=== PATIENT | male | born 1975 | race Caucasian/White ===

== ENCOUNTER → 2016-09-18 | Outpatient (CLI) | payer SELFPAY ==
[2016-09-18 16:49] LABS: Basophils % (A) 0 %; CH 32.7; CHCM 34.7; Eosinophils # (A) 0.7 k/uL (0-0.7); Eosinophils % (A) 6 %; HCT 48.7 % (39.0-53.0); HDW 2.96; HGB 16.4 gm/dL (13.0-17.5); Luc # (Auto) 0.17; Luc % (Auto) 2; Lymphocytes # (A) 1.9 k/uL (1.0-4.8); Lymphocytes % (A) 16 %; MCHC 33.8 g/dL (31.0-37.0); MCV 94.6 fL (80.0-100.0); Mean Platelet Volume 6.8; Monocytes # (A) 0.4 k/uL (0-1.0); Monocytes % (A) 4 %; Neutrophils # (A) 8.4 k/uL (1.3-7.7); Neutrophils % (A) 73 %; RBC 5.15 m/uL (4.30-5.90); RDW 13.3 % (11.5-15.5); WBC 11.5 k/uL (3.8-10.6); WBC (Perox) 12.26
[2016-09-18 16:56] LABS: ALT 38 U/L (21-72); AST 22 U/L (17-59); Alkaline Phosphatase 60 U/L (38-126); Anion Gap 11 mmol/L; Blood Urea Nitrogen 12 mg/dL (9-20); Calcium 9.5 mg/dL (8.4-10.2); Carbon Dioxide 25 mmol/L (22-30); Chloride 108 mmol/L (98-107); Glucose 118 mg/dL (74-99); Iron 77 ug/dL (49-181); Non-African American GFR(MDRD) >60 (>60 ml/min/1.73 sqM); Potassium 4.7 mmol/L (3.5-5.1); Sodium 144 mmol/L (137-145); Total Bilirubin 0.7 mg/dL (0.2-1.3); Total Protein 7.3 g/dL (6.3-8.2)
[2016-09-18 17:05] LABS: % Iron Saturation 26.7 % (20-50); Total Iron Binding Capacity 288 ug/dL (261-462)
[2016-09-18 17:43] LABS: Vitamin B12 604 pg/mL (239-931)
== END | disposition home or self-care (01) ==
LOC: LABWHC1 16:17
PROVIDERS: ATTEND Nurse Practitioner Acute Care
DX: M35.3 Polymyalgia rheumatica (principal); E55.9 Vitamin D deficiency, unspecified
CPT/HCPCS: 36415; 80053; 82306; 82607; 83540; 83550; 84439; 84443; 84466; 84481; 85025

== ENCOUNTER → 2017-05-18 | Outpatient (CLI) | payer OTHER ==
--- NOTE | 2017-05-21 08:02 | MR ---
EXAMINATION TYPE: MR tapan/romelia wo con DATE OF EXAM: 05/18/2017 9:34 PM COMPARISON: 11/15/2011 HISTORY: Neck and low back pain Multiplanar MultiSpin echo imaging of the cervical spine was performed. C2-C3: No evidence for degenerative disc disease. No disc bulge/herniation or protrusion. No Canal stenosis. Foramina are patent bilaterally. C3-C4: Mild disc desiccation. Mild posterior disc bulge without herniation. No evidence for central s tenosis. Neural foramina are patent bilaterally. C4-C5: Moderate disc desiccation. Broad-based posterocentral disc protrusion. Effacement of the ventr al thecal sac. Mild ventral CORD contact. Mild central stenosis identified. Neural foramina are paten t bilaterally. C5-C6: Moderate to severe disc desiccation. Broad-based subligamentous disc herniation is again noted . Effacement ventral thecal sac and ventral cord contact again seen. 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 Moderate central stenosis identif ied. Bilateral foraminal encroachment left greater than right. C6-C7: Moderate disc desiccation. Right paracentral disc bulge with protrusion difficult to exclude. Effacement ventral thecal sac with borderline to mild central stenosis. Right greater than left columba inal encroachment. C7-T1: No evidence for degenerative disc disease. No disc bulge/herniation or pro trusion. No Canal stenosis. Foramina are patent bilaterally. Cervical segments are intact. There is normal alignment. Cervical spinal cord is of normal signal. Craniovertebral junction relationships are within normal limits. IMPRESSION: 1. Multilevel degenerative disc disease with progressive findings at C3-4, C4-5 and C6-7. Persistent disc herniation and central stenosis at C5-6. See above. EXAMINATION TYPE: MR tapan/romelia wo con DATE OF EXAM: 05/18/2017 9:34 PM COMPARISON: 03/01/2015 HISTORY: Neck and low back pain Multiplanar, MultiSpin echo imaging of the lumbar spine was performed. L1-L2: Normal disc appearance without desiccation. No herniation, protrusion or disc bulging. No ca nal stenosis is present. Foramina are patent bilaterally. L2-L3: Normal disc appearance without desiccation. No herniation, protrusion or disc bulging. No ca nal stenosis is present. Foramina are patent bilaterally. L3-L4: Normal disc appearance without desiccation. No herniation, protrusion or disc bulging. No ca nal stenosis is present. Foramina are patent bilaterally. L4-L5: Borderline disc desiccation. Mild posterocentral disc bulge. No herniation protrusion or centr al stenosis. Foramina are patent bilaterally. L5-S1: Moderate disc desiccation. Posterocentral disc protrusion. Mild effacement ventral thecal sac. No evidence for corina herniation or central stenosis. Foramina are patent bilaterally. Lumbar segments are intact. No paraspinal masses are identified. Stable hemangiomas identified. Con us medullaris has a normal appearance. IMPRESSION: 1. Degenerative disc disease as discussed. 2. Posterocentral disc protrusion at L5-S1.
== END | disposition home or self-care (01) ==
LOC: RADMRIMAIN 20:51
PROVIDERS: ATTEND Nurse Practitioner Acute Care
DX: M48.02 Spinal stenosis, cervical region (principal); M50.222 Other cervical disc displacement at C5-C6 level; M50.31 Other cervical disc degeneration, high cervical region; M51.36 Other intervertebral disc degeneration, lumbar region; M51.27 Other intervertebral disc displacement, lumbosacral region
CPT/HCPCS: 72141; 72148